=== PATIENT | male | born 1975 | race Caucasian/White ===

== ENCOUNTER 2024-07-08 13:26 | Emergency (ER) | payer BC, SELFPAY ==
--- NOTE | ~2024-07-08 | XR_ITS ---
EXAMINATION: XR chest 2V 07/08/2024 14:55 INDICATION: Cough and congestion for one week PROCEDURE: 2 view chest COMPARISON: No prior studies for comparison. FINDINGS: The lungs are clear. The cardiomediastinal silhouette is within normal limits. There are no pleural effusions. There is no pneumothorax suspected. IMPRESSION: 1: NO ACUTE CARDIOPULMONARY DISEASE. Reviewed, dictated and finalized at location A. INE OPERATOR PACKAGING
[2024-07-08 13:40] VITALS: BP 136/75; PULSE 110; RESP 20; TEMP 37.5; O2SAT 94
--- OUTSIDE RECORDS SUMMARY | 2024-07-08 14:03 | XMS_ITS | Clinical Summary ---
Author Organization [address] Address [address] [place] [address] Care Team Providers Care Television Installer Helper Name Role Phone Brittany Mccauley MD Primary Care Provider + Giovanni Hoover MD Unavailable [phone] Allergies Active Allergy Reactions Criticality Noted Date Comments Penicillins Other (See comments) Reaction: Unknown, Medications No known medications Active Problems Problem Noted Date Diagnosed Date Septic prepatellar bursitis of right knee 2021 Overview (04/11/2022): Added automatically from request for surgery [id number] Acute non-recurrent frontal sinusitis 12/11/2020 Assessment & Plan (12/11/2020 1:01 PM CDT): Antibiotic sent to pharmacy. I recommend taking Mucinex, a nasal steroid like Flonase/Nasacort/Rhinocort and using some nasal/sinus rinses such as nasal sprays or netti pot. Follow up PRN Cough 12/11/2020 Assessment & Plan (12/11/2020 1:02 PM CDT): X-ray ordered, will call with results. May treat symptoms with [id number] medications for comfort. Increase liquid intake to prevent dehydration. Monitor for resp distress or dehydration, if occurs seek care in ER. Surgical History Surgery Date Site/Laterality Comments OPEN REDUCTION INTERNAL FIXATION Right ORIF Medical History Medical History Date Comments Hx Other Medical Headache, migra ine GERD (gastroesophageal reflux disease) Family History Medical History Relation Name Comments Diabetes type II Other Diabetes me llitus type 2; Relation Name Status Comments Other Social History Tobacco Use Types Packs/Day Years Used Date Smoking Tobacco: Former Cigarettes Smokeless Tobacco: Never Tobacco Cessation:Counseling Given: Not Answered Alcohol Use Standard Drinks/Week Comments Yes 0 (1 standard drink = 0.6 oz pur e alcohol) AUDIT-C Answer Date Recorded Q1: How often do you have a drink containing alc ohol? Monthly or less 04/12/2022 Q2: How many drinks containi ng alcohol do you have on a typical day when you are drinking? 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 Gender Identity Not on file Sexual Orientation Not on file Obstetrics History Last Filed Vital Signs Vital Sign Reading Time Taken Comments Blood Pressure 120/90 08/04/2023 4:04 PM STOCKROOM SELECTOR Pulse 70 08/04/2023 4:04 PM STOCKROOM SELECTOR Temperature 36.5 ??C (97.7 ??F) 08/04/2023 4:04 PM CS T Respiratory Rate 20 08/04/2023 4:04 PM STOCKROOM SELECTOR Oxygen Saturation 98% 08/04/2023 4:04 PM STOCKROOM SELECTOR Inhaled Oxygen Concentration - - Weight 82.6 kg (182 lb) 08/04/2023 4:04 PM STOCKROOM SELECTOR Height 180.3 cm (5' 11 ) 08/04/2023 4:04 PM STOCKROOM SELECTOR Body Mass Index 25.38 08/04/2023 4:04 PM STOCKROOM SELECTOR Plan of Treatment Health Maintenance Due Date Last Done Comments Colon Cancer Screening-Colonoscopy 1977 Depression Screening 1977 Hepatitis C Screening 1977 DTaP/Tdap/Td Vaccine (1 - Tdap) 1988 Hepatitis B Screening 1995 Regular Well Visit/Exam 18-64 1995 Influenza Vaccine (#1) 2024 HPV Vaccines Aged Out No longer eligi ble based on patient's age to complete this topic Pneumococcal vaccine <65 Aged Out No longer eligible based on patient's age to complete this topic Insurance [place] [place] Care Teams Television Installer Helper Relationship Specialty Start Date End Date Brittany Mccauley MD [address] [place] [address] [address] [place] [address] PCP - General Family Medicine 12/11/20 Giovanni Hoover MD [address] [place] [address] [address] [place] [address] Surgeon Orthopedic Surgery 04/12/22
--- OUTSIDE RECORDS SUMMARY | 2024-07-08 14:03 | XMS_ITS | Referral Summary ---
Author Organization [facility] [address] [place] [address] [address] [place] [address] Care Team Providers Care Juice Mixer Name Role Phone Brittany Mccauley MD Primary Care Provider + Giovanni Hoover MD Unavailable [phone] Allergies Active Allergy Reactions Criticality Noted Date Comments Penicillins Other (See comments) Reaction: Unknown, Medications No known medications Active Problems Problem Noted Date Diagnosed Date Septic prepatellar bursitis of right knee 2021 Overview (04/11/2022): Added automatically from request for surgery [id number] Acute non-recurrent frontal sinusitis 12/11/2020 Assessment & Plan (12/11/2020 1:01 PM CDT): Antibiotic sent to pharmacy. I recommend taking Mucinex, a nasal steroid like Flonase/Nasacort/Rhinocort and using some nasal/sinus rinses such as nasal sprays or netti pot. Follow up PRN Cough 12/11/2020 Assessment & Plan (12/11/2020 1:02 PM CDT): X-ray ordered, will call with results. May treat symptoms with [id number] medications for comfort. Increase liquid intake to prevent dehydration. Monitor for resp distress or dehydration, if occurs seek care in ER. 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 SANDER Gender Identity Not on file Sexual Orientation Not on file Last Filed Vital Signs Vital Sign Reading Time Taken Comments Blood Pressure 120/90 08/04/2023 4:04 PM PNEUMATIC DRUM SANDER Pulse 70 08/04/2023 4:04 PM PNEUMATIC DRUM SANDER Temperature 36.5 ??C (97.7 ??F) 08/04/2023 4:04 PM CS T Respiratory Rate 20 08/04/2023 4:04 PM PNEUMATIC DRUM SANDER Oxygen Saturation 98% 08/04/2023 4:04 PM PNEUMATIC DRUM SANDER Inhaled Oxygen Concentration - - Weight 82.6 kg (182 lb) 08/04/2023 4:04 PM PNEUMATIC DRUM SANDER Height 180.3 cm (5' 11 ) 08/04/2023 4:04 PM PNEUMATIC DRUM SANDER Body Mass Index 25.38 08/04/2023 4:04 PM PNEUMATIC DRUM SANDER Plan of Treatment Not on file Insurance [facility] Care Teams Juice Mixer Relationship Specialty Start Date End Date Brittany Mccauley MD [address] [place] [address] PCP - General Family Medicine 12/11/20 Giovanni Hoover MD [address] [place] [address] [address] [place] [address] Surgeon Orthopedic Surgery 04/12/22
--- NOTE | 2024-07-08 14:56 | ED_ITS ---
HPI - General Adult General Chief complaint: Upper Respiratory Infection Stated complaint: Cough/Sore Throat/Chest Congestion Source: patient Mode of arrival: ambulatory Limitations: no limitations History of Present Illness HPI narrative: Patient presents for evaluation of a cough for the last 1.5 weeks. Cough is intermittently productive. He has SOB and reports discomfort with deep inspiration. He has had pneumonia in the past and this feels similar. He reports yellow nasal drainage hand a sore throat. He denies any fever, chills, nausea, vomiting, diarrhea. No recent sick contacts to his knowledge. He does vape. He is taking DayQuil and NyQuil for his symptoms. Related Data Allergies Allergy/AdvReac Type Severity Reaction Status Date / Time Penicillins Allergy Unknown Unknown Verified 07/08/24 13:56 Review of Systems Review of Systems: CONSTITUTIONAL: Denies fever, chills, or sweats. EYES: Denies visual changes, redness, or discharge. ENT: Reports sore throat. Denies rhinorrhea, congestion, or otalgia. CARDIOVASCULAR: Denies chest pain, palpitations, or edema. RESPIRATORY: Reports cough, shortness of breath, and discomfort with deep inspiration GASTROINTESTINAL: Denies abdominal pain, nausea, vomiting, or diarrhea. GENITOURINARY: Denies dysuria or hematuria. SKIN: Denies rash or itching. MUSCULOSKELETAL: Denies back pain, joint pain, or myalgia. NEUROLOGIC: Denies headache, numbness, dizziness, or weakness. PSYCHIATRIC: Denies anxiety or depression. PMFSH Past Medical History Medical History (Updated 07/08/24 @ 15:21 by ERICKA Champion, ) History of pneumonia Surgical History Surgical History No pertinent past surgical history Family History Family History Mother Family history non-contributory Social History Social History Smoking status: Current every day smoker Tobacco type: e-cigarettes/vaping Living arrangements: with family Gender identity (if verbalized by the patient): Male Spiritual care concerns: No Exam Narrative: GENERAL: Well-appearing, well-nourished, and in no acute distress. HEAD: Normocephalic, atraumatic. EYES: PERRLA and EOMI. ENT: Nares clear, no rhinorrhea or epistaxis. Mucous membranes moist. Oropharynx without tonsillar hypertrophy exudate or other lesions. Bilateral TMs pearly kimble nonbulging NECK: Supple. No adenopathy or masses. No carotid bruits or JVD CHEST: Wheezing noted in lung bases bilaterally. Cough present on exam HEART: Regular rate and rhythm. No murmur heard. Normal peripheral pulses. ABDOMEN: Soft, nontender, nondistended, normal active bowel sounds. EXTREMITIES: Normal range of motion. No edema. SKIN: Warm, dry, no rash. NEURO: No focal deficits. Alert and oriented x3. PSYCH: Normal mood and affect. Course Course Emergency Course: This is a 49 year old male who presented for evaluation of respiratory symptoms. Chest x-ray was negative. Patient does have a history of pneumonia indicated that ends in the past he has had a negative chest x-ray but ended up being diagnosed with pneumonia later. Given the fact that his current symptoms are consistent previous bouts pneumonia, I think it is reasonable to treat him for that. No will DC with Augmentin(pt confirmed he can take despite PCN), azithromycin, prednisone, Tessalon, albuterol. Increase hydration. Increase hydration. Zoyw-gmc-mpjkkmb agents for symptom management. Follow up with primary provider. Go to the ER for worsening symptoms. Patient in agreement with plan of care. Level of Care: Express Care Visit Vital Signs Vital signs: Vital Signs Temperature 37.5 C 07/08/24 13:40 Pulse Rate 110 H 07/08/24 13:40 Respiratory Rate 20 07/08/24 13:40 Blood Pressure 136/75 07/08/24 13:40 Pulse Oximetry 94 07/08/24 13:40 Oxygen Delivery Room Air 07/08/24 13:40 Temperature 37.5 C 07/08/24 13:40 Pulse Rate 110 H 07/08/24 13:40 Respiratory Rate 20 07/08/24 13:40 Blood Pressure 136/75 07/08/24 13:40 Pulse Oximetry 94 07/08/24 13:40 Oxygen Delivery Room Air 07/08/24 13:40 Medical Decision Making Vital Signs Vital Signs: Vital Signs Temperature 37.5 C 07/08/24 13:40 Pulse Rate 110 H 07/08/24 13:40 Respiratory Rate 20 07/08/24 13:40 Blood Pressure 136/75 07/08/24 13:40 Pulse Oximetry 94 07/08/24 13:40 Oxygen Delivery Room Air 07/08/24 13:40 Temperature 37.5 C 07/08/24 13:40 Pulse Rate 110 H 07/08/24 13:40 Respiratory Rate 20 07/08/24 13:40 Blood Pressure 136/75 07/08/24 13:40 Pulse Oximetry 94 07/08/24 13:40 Oxygen Delivery Room Air 07/08/24 13:40 Imaging Data Radiologist's impression: EXAMINATION: XR chest 2V 07/08/2024 14:55 INDICATION: Cough and congestion for one week PROCEDURE: 2 view chest COMPARISON: No prior studies for comparison. FINDINGS: The lungs are clear. The cardiomediastinal silhouette is within normal limits. There are no pleural effusions. There is no pneumothorax suspected. IMPRESSION: 1: NO ACUTE CARDIOPULMONARY DISEASE. Discharge Plan Discharge Clinical Impression: At high risk for pneumonia Patient Disposition: Home, Self-Care Condition: Stable Instructions: Antibiotic Form, Community Acquired Pneumonia (DC) Patient Language: Lithuanian Prescriptions: New amoxicillin-pot clavulanate 875-125 mg tablet 1 tablet PO Q12H Qty: 220 0RF azithromycin 250 mg tablet See Rx Instructions .ROUTE .COMPLEX Qty: 6 0RF Rx Instructions: For 250 mg dose pack: take 500 mg today (day 1), then 250 mg for 4 days (days 2-5) prednisone 50 mg tablet 50 mg PO DAILY Qty: 5 0RF benzonatate 200 mg capsule 200 mg PO BID PRN (Reason: cough) Qty: 30 0RF Proair Digihaler 90 mcg/actuation aero powdr breath act w/sensor 2 inh inhalation Q6H Qty: 1 0RF Follow-up/Referrals: Papito Trevino MD [Physician] - Stand Alone Forms: Work/School Release IP Time of Disposition: 15:23
== END 2024-07-08 15:27 | disposition home or self-care (01) ==
PROVIDERS: Emergency Provider Nurse Practitioner
DX: R05.9 Cough, unspecified (principal); F17.290 Nicotine dependence, other tobacco product, uncomplicated
CPT/HCPCS: 71046; 99203; G0463

== ENCOUNTER 2024-07-10 10:25 | Emergency (ER) | payer BC, SELFPAY ==
[2024-07-10] VITALS (8 sets, daily range): BP systolic 110–128; BP diastolic 66–84; PULSE 75–90; RESP 14–20; TEMP 36.8; O2SAT 93–98
--- NOTE | ~2024-07-10 | XR_ITS ---
EXAMINATION: XR chest 2V 07/10/2024 12:15 INDICATION: Shortness of breath PROCEDURE: 2 view chest COMPARISON: 07/08/2024 FINDINGS: The lungs are clear. The cardiomediastinal silhouette is within normal limits. There are no pleural effusions. There is no pneumothorax suspected. IMPRESSION: 1: NO ACUTE CARDIOPULMONARY DISEASE. Reviewed, dictated and finalized at location A. E CREW SUPERVISOR
--- NOTE | ~2024-07-10 | CT_ITS ---
EXAMINATION:CT diagnostic chest wo con DATE: 07/10/2024 13:14 INDICATION: Pneumonia. TECHNIQUE: Computed tomography (CT) of the chest was performed without intravenous contrast. Automate d exposure control and iterative reconstruction technique were employed. The dose-length product (DLP ) was 224.14 mGy-cm. COMPARISON: Chest 2 views 07/10/2024, CT abdomen and pelvis 05/15/2024 FINDINGS: There is mild emphysema. There is mild atelectasis bilaterally. There is a 3 mm nodule in l eft lower lobe, likely benign. There are tree-in-bud opacities in the lower lobes and right upper lob e. No pleural effusion. The heart size is normal. There is a trace pericardial effusion. There is mil d bilateral gynecomastia. There are 2 mm and 3 mm stones in left kidney. There is mild thoracic spond ylosis. There is mild chronic anterior wedging of T10-L1 vertebral bodies. IMPRESSION: 1. Mild tree-in-bud opacities in the lower lobes and right upper lobe, consistent with pneumonia. Reviewed, dictated and finalized at location A. NER IMPRESSION: 1. Mild tree-in-bud opacities in the lower lobes and right upper lobe, consiste nt with pneumonia.
--- NOTE | 2024-07-10 10:52 | ECG_ITS ---
Test Date: 2024-07-10 11:00:55 Measurements Intervals [place] Rate: 73 P: 60 WI: 143 QRS: 51 QRSD: 101 T: 52 QT: 387 QTc: 429 Interpretive Statements SINUS RHYTHM POSSIBLE INFERIOR MYOCARDIAL INFARCTION , OF INDETERMINATE AGE [30 ms Q WAVE IN II/aVF] No previous ECG available for comparison Electronically Signed On 07-10-2024 11:47:42 MANAGER OF PROJECT MANAGEMENT by Joey Stafford M.D.
--- NOTE | 2024-07-10 11:12 | ED_ITS ---
HPI - SOB/Dyspnea General Chief Complaint: Shortness of Breath/Dyspnea <Bria Red PA-C - Last Filed: 07/11/24 17:02> Stated Complaint: PNA on abx, needs stronger meds <Bria Red PA-C - Last Filed: 07/11/24 17:02> Time Seen by Provider: 07/10/24 11:12 <Bria Red PA-C - Last Filed: 07/11/24 17:02> Focused HPI: This is a 49 year old male that presents to the ER for cold symptoms. Ongoing over the last couple of days. He has been on a Z pack and Augmentin without relief. Worried he has pneumonia. Reports pleuritic chest pain, shortness of breath. GENERAL: Well-appearing, well-nourished, and in no acute distress. HEAD: Normocephalic, atraumatic. CHEST: No respiratory distress. Mild expiratory wheezing HEART: Regular rate and rhythm.? NEURO: ?Alert and oriented x3. Patient screened in triage and initial orders placed.? ?Additional care and disposition to be based upon?diagnostic testing and treatment. <Bria Red PA-C - Last Filed: 07/11/24 17:02> Related Data Allergies/Adverse Reactions: Allergies Allergy/AdvReac Type Severity Reaction Status Date / Time Penicillins Allergy Unknown Unknown Verified 07/10/24 10:51 <Bria Red PA-C - Last Filed: 07/11/24 17:02> Review of Systems 2 Review of Systems: All systems reviewed & are unremarkable except as noted in HPI and below <Bria Red PA-C - Last Filed: 07/11/24 17:02> PMFSH Past Medical History Medical History: Medical History (Updated 07/11/24 @ 17:02 by Bria Red PA-C) History of pneumonia <Bria Red PA-C - Last Filed: 07/11/24 17:02> Surgical History Surgical History: Surgical History No pertinent past surgical history <Bria Red PA-C - Last Filed: 07/11/24 17:02> Family History Family History: Family History Mother Family history non-contributory <Bria Red PA-C - Last Filed: 07/11/24 17:02> Social History Social History: Social History Smoking status: Current every day smoker Tobacco type: e-cigarettes/vaping Living arrangements: with family Gender identity (if verbalized by the patient): Male Spiritual care concerns: No <Bria Red PA-C - Last Filed: 07/11/24 17:02> Exam 2 Narrative: APPEARANCE: No apparent distress. Well-appearing Head: atraumatic. EYES: EOMI, NOSE: Atraumatic NECK: Trachea midline RESPIRATORY: No increased rate of breathing, mild expiratory wheezing CARDIOVASCULAR: RRR, no peripheral edema ABDOMINAL: Non-distended soft nontender MUSCULOSKELETAl: No obvious deformities NEURO: Alert. Moving 4/4 extremities SKIN:: Warm, dry. Normal color PSYCHIATRIC: Normal affect <Terrence Cody MD - Last Filed: 07/10/24 13:57> Course Vital Signs Vital signs: Vital Signs Temperature 98.3 F 07/10/24 10:45 Pulse Rate 75 07/10/24 10:45 Respiratory Rate 17 07/10/24 10:45 Blood Pressure 128/84 07/10/24 10:45 Pulse Oximetry 95 07/10/24 10:45 Oxygen Delivery Room Air 07/10/24 10:45 Temperature 98.3 F 07/10/24 10:45 Pulse Rate 90 07/10/24 14:00 Respiratory Rate 18 07/10/24 14:00 Blood Pressure 112/75 07/10/24 14:00 Pulse Oximetry 93 07/10/24 14:00 Oxygen Delivery Room Air 07/10/24 13:35 <Bria Red PA-C - Last Filed: 07/11/24 17:02> Vital Signs Temperature 98.3 F 07/10/24 10:45 Pulse Rate 75 07/10/24 10:45 Respiratory Rate 17 07/10/24 10:45 Blood Pressure 128/84 07/10/24 10:45 Pulse Oximetry 95 07/10/24 10:45 Oxygen Delivery Room Air 07/10/24 10:45 Temperature 98.3 F 07/10/24 10:45 Pulse Rate 90 07/10/24 14:00 Respiratory Rate 18 07/10/24 14:00 Blood Pressure 112/75 07/10/24 14:00 Pulse Oximetry 93 07/10/24 14:00 Oxygen Delivery Room Air 07/10/24 13:35 <Terrence Cody MD - Last Filed: 07/10/24 13:57> MDM - SOB/Dyspnea MDM Narrative Medical decision making narrative: -Course: 49-year-old male presenting 2 days after starting antibiotics for possible pneumonia. Physical exam shows normal vital signs and slight expiratory wheezing on exam. Given a breathing treatment. Chest x-ray was clear but CT showed very mild pneumonia. Patient had a complicated course of PNA several years ago has some anxiety in regards to getting worsening pneumonia. He has only been on medication for a day and half. I think he could continue the Augmentin. We will switch his azithromycin to doxy due to high resistance rates. Otherwise patient is resting comfortably in bed and is a good candidate for outpatient management. Patient be discharged with return precautions. -DDX includes but is not limited to: Pneumonia, bronchitis, viral syndrome -Co-morbidities complicating care: History pneumonia <Terrence Cody MD - Last Filed: 07/10/24 13:57> Lab Data Result diagrams: 07/10/24 11:06 07/10/24 11:06 <Bria Red PA-C - Last Filed: 07/11/24 17:02> Labs: Lab Results 07/10/24 07/10/24 Range/Units 11:06 13:01 WBC 8.8 (4.5-10.0) K/mm3 RBC 4.57 L (4.6-6.20) M/mm3 Hgb 14.2 (14.0-18.0) g/dL Hct 41.2 L (42.0-52.0) % MCV 90.2 (80-100) fl MCH 31.1 (26-34) pg MCHC 34.5 (32-36) g/dl RDW 12.6 (11.5-14.5) % Plt Count 224 (150-375) k/mm3 MPV 9.2 (7.4-10.4) fl Immature Gran % (Auto) 0.5 (0-0.5) % Neut % (Auto) 85.8 H (45.5-73.1) % Lymph % (Auto) 9.9 L (18.3-44.2) % [place] % (Auto) 3.5 (2.6-8.5) % Eos % (Auto) 0.2 (0-4.4) % Baso % (Auto) 0.1 L (0.2-1.2) % Lymph # (Auto) 0.87 L (0.9-3.2) K/mm3 [place] # (Auto) 0.3 (0.1-0.6) K/mm3 Eos # (Auto) 0.0 (0-0.3) K/mm3 Baso # (Auto) 0.0 (0.0-0.1) K/mm3 Abs Immat Gran (auto) 0.04 H (0.00-0.031) K/mm3 Absolute Neuts (auto) 7.6 H (1.3-6.7) K/mm3 Absolute Nucleated RBC 0.000 (0.0-0.012) K/mm3 Nucleated RBC % 0.0 (0.0-0.2) % Sodium 142 (137-145) mmol/L Potassium 3.7 (3.4-5.0) mmol/L Chloride 104 (98-107) mmol/L Carbon Dioxide 28 (22-30) mmol/L Anion Gap 10 (4-12) mmol/L BUN 14 (9-20) mg/dL Creatinine 0.60 L (0.7-1.3) mg/dL Estim Creat Clear Calc 138 ml/min Estimated GFR > 60 (59 - ) Glucose 117 H (65-110) mg/dL Calcium 8.9 (8.4-10.2) mg/dL Total Bilirubin 0.4 (0.2-1.3) mg/dL AST 27 (17-59) U/L ALT 20 (6-50) U/L Alkaline Phosphatase 69 (38-126) U/L Troponin I < 0.012 (0.000-0.034) ng/mL Total Protein 7.0 (6.3-8.2) g/dL Albumin 3.9 (3.5-5.1) g/dL Influenza A (RT-PCR) Negative (Negative) Influenza B (RT-PCR) Negative (Negative) RSV (RT-PCR) Negative (Negative) SARS-CoV-2 RNA (RT-PCR) Negative (Negative) <Bria Red PA-C - Last Filed: 07/11/24 17:02> Lab Results 07/10/24 07/10/24 Range/Units 11:06 13:01 WBC 8.8 (4.5-10.0) K/mm3 RBC 4.57 L (4.6-6.20) M/mm3 Hgb 14.2 (14.0-18.0) g/dL Hct 41.2 L (42.0-52.0) % MCV 90.2 (80-100) fl MCH 31.1 (26-34) pg MCHC 34.5 (32-36) g/dl RDW 12.6 (11.5-14.5) % Plt Count 224 (150-375) k/mm3 MPV 9.2 (7.4-10.4) fl Immature Gran % (Auto) 0.5 (0-0.5) % Neut % (Auto) 85.8 H (45.5-73.1) % Lymph % (Auto) 9.9 L (18.3-44.2) % [place] % (Auto) 3.5 (2.6-8.5) % Eos % (Auto) 0.2 (0-4.4) % Baso % (Auto) 0.1 L (0.2-1.2) % Lymph # (Auto) 0.87 L (0.9-3.2) K/mm3 [place] # (Auto) 0.3 (0.1-0.6) K/mm3 Eos # (Auto) 0.0 (0-0.3) K/mm3 Baso # (Auto) 0.0 (0.0-0.1) K/mm3 Abs Immat Gran (auto) 0.04 H (0.00-0.031) K/mm3 Absolute Neuts (auto) 7.6 H (1.3-6.7) K/mm3 Absolute Nucleated RBC 0.000 (0.0-0.012) K/mm3 Nucleated RBC % 0.0 (0.0-0.2) % Sodium 142 (137-145) mmol/L Potassium 3.7 (3.4-5.0) mmol/L Chloride 104 (98-107) mmol/L Carbon Dioxide 28 (22-30) mmol/L Anion Gap 10 (4-12) mmol/L BUN 14 (9-20) mg/dL Creatinine 0.60 L (0.7-1.3) mg/dL Estim Creat Clear Calc 138 ml/min Estimated GFR > 60 (59 - ) Glucose 117 H (65-110) mg/dL Calcium 8.9 (8.4-10.2) mg/dL Total Bilirubin 0.4 (0.2-1.3) mg/dL AST 27 (17-59) U/L ALT 20 (6-50) U/L Alkaline Phosphatase 69 (38-126) U/L Troponin I < 0.012 (0.000-0.034) ng/mL Total Protein 7.0 (6.3-8.2) g/dL Albumin 3.9 (3.5-5.1) g/dL Influenza A (RT-PCR) Negative (Negative) Influenza B (RT-PCR) Negative (Negative) RSV (RT-PCR) Negative (Negative) SARS-CoV-2 RNA (RT-PCR) Negative (Negative) <Terrence Cody MD - Last Filed: 07/10/24 13:57> Imaging Data Radiologist's impression: ITS Impressions Chest X-Ray 07/10/24 12:20 IMPRESSION: 1: NO ACUTE CARDIOPULMONARY DISEASE. Chest CT 07/10/24 13:26 IMPRESSION: 1. Mild tree-in-bud opacities in the lower lobes and right upper lobe, consistent with pneumonia. <Bria Red PA-C - Last Filed: 07/11/24 17:02> Critical Care Time Critical Care Time Critical Care Time: No <Bria Red PA-C - Last Filed: 07/11/24 17:02> Discharge Plan Discharge Clinical Impression: Pneumonia Qualifiers: Pneumonia type: due to unspecified organism Laterality: bilateral Lung location: lower lobe of lung Qualified Code(s): J18.9 - Pneumonia, unspecified organism <Bria Red PA-C - Last Filed: 07/11/24 17:02> Patient Disposition: Home, Self-Care <Bria Red PA-C - Last Filed: 07/11/24 17:02> Condition: Stable <Bria Red PA-C - Last Filed: 07/11/24 17:02> Instructions: Antibiotic Form, Bacterial Pneumonia (DC) <Bria Red PA-C - Last Filed: 07/11/24 17:02> Additional Instructions: You were seen in the ED for pneumonia. Please continue taking the Augmentin as instructed. Please add doxycycline 100 mg b.i.d. x7 days. Please follow-up with your primary care physician in 48 hours. If you feel your condition is getting worse please return ED for re-evaluation. <Bria Red PA-C - Last Filed: 07/11/24 17:02> Patient Language: Hungarian <Bria Red PA-C - Last Filed: 07/11/24 17:02> Prescriptions: New doxycycline hyclate 100 mg capsule 100 mg PO DAILY Qty: 14 0RF No Action amoxicillin-pot clavulanate 875-125 mg tablet 1 tablet PO Q12H Qty: 220 0RF azithromycin 250 mg tablet See Rx Instructions .ROUTE .COMPLEX Qty: 6 0RF Rx Instructions: For 250 mg dose pack: take 500 mg today (day 1), then 250 mg for 4 days (days 2-5) prednisone 50 mg tablet 50 mg PO DAILY Qty: 5 0RF benzonatate 200 mg capsule 200 mg PO BID PRN (Reason: cough) Qty: 30 0RF Proair Digihaler 90 mcg/actuation aero powdr breath act w/sensor 2 inh inhalation Q6H Qty: 1 0RF <Bria Red PA-C - Last Filed: 07/11/24 17:02> Follow-up/Referrals: UNKNOWN,DOCTOR [Primary Care Provider] - <Bria Red PA-C - Last Filed: 07/11/24 17:02>
[2024-07-10 11:13] LABS: Basophils Percent Auto 0.1 % (0.2-1.2); Eosinophils Percent Auto 0.2 % (0-4.4); Hematocrit 41.2 % (42.0-52.0); Hemoglobin 14.2 g/dL (14.0-18.0); Immature Granulocyte Absolute 0.04 K/mm3 (0.00-0.031); Immature Granulocyte Percent A 0.5 % (0-0.5); Lymphocytes Absolute Auto 0.87 K/mm3 (0.9-3.2); Lymphocytes Percent Auto 9.9 % (18.3-44.2); Mean Corpuscular HGB Conc 34.5 g/dl (32-36); Mean Corpuscular Hemoglobin 31.1 pg (26-34); Mean Corpuscular Volume 90.2 fl (80-100); Mean Platelet Volume 9.2 fl (7.4-10.4); Monocytes Absolute Auto 0.3 K/mm3 (0.1-0.6); Monocytes Percent Auto 3.5 % (2.6-8.5); Neutrophils Absolute Auto 7.6 K/mm3 (1.3-6.7); Neutrophils Percent Auto 85.8 % (45.5-73.1); Platelet Count Result 224 k/mm3 (150-375); Red Blood Count 4.57 M/mm3 (4.6-6.20); Red Cell Distribution Width 12.6 % (11.5-14.5); White Blood Count 8.8 K/mm3 (4.5-10.0)
--- OUTSIDE RECORDS SUMMARY | 2024-07-10 11:18 | XMS_ITS | Clinical Summary ---
Author Organization [address] Address [address] [place] [address] Care Team Providers Care Production Engine Repairer Name Role Phone Brittany Mccauley MD Primary Care Provider + Giovanni Hoover MD Unavailable [phone] Allergies Active Allergy Reactions Criticality Noted Date Comments Penicillins Other (See comments) Reaction: Unknown, Medications No known medications Active Problems Problem Noted Date Diagnosed Date Septic prepatellar bursitis of right knee 2021 Overview (04/11/2022): Added automatically from request for surgery [id number] Acute non-recurrent frontal sinusitis 12/11/2020 Assessment & Plan (12/11/2020 1:01 PM CDT): Antibiotic sent to pharmacy. I recommend taking Mucinex, a nasal steroid like Flonase/Nasacort/Rhinocort and using some nasal/sinus rinses such as nasal sprays or netti pot. Follow up PRN Cough 12/11/2020 Assessment & Plan (12/11/2020 1:02 PM CDT): X-ray ordered, will call with results. May treat symptoms with [id number] medications for comfort. 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 Gender Identity Not on file Sexual Orientation Not on file Obstetrics History Last Filed Vital Signs Vital Sign Reading Time Taken Comments Blood Pressure 120/90 08/04/2023 4:04 PM SUPERVISOR GROUNDS Pulse 70 08/04/2023 4:04 PM SUPERVISOR GROUNDS Temperature 36.5 ??C (97.7 ??F) 08/04/2023 4:04 PM CS T Respiratory Rate 20 08/04/2023 4:04 PM SUPERVISOR GROUNDS Oxygen Saturation 98% 08/04/2023 4:04 PM SUPERVISOR GROUNDS Inhaled Oxygen Concentration - - Weight 82.6 kg (182 lb) 08/04/2023 4:04 PM SUPERVISOR GROUNDS Height 180.3 cm (5' 11 ) 08/04/2023 4:04 PM SUPERVISOR GROUNDS Body Mass Index 25.38 08/04/2023 4:04 PM SUPERVISOR GROUNDS Plan of Treatment Health Maintenance Due Date [...] patient's age to complete this topic Insurance [employer] Care Teams Production Engine Repairer Relationship Specialty Start Date End Date Brittany Mccauley MD [address] [place] [address] [address] [place] [address] PCP - General Family Medicine 12/11/20 Giovanni Hoover MD [address] [place] [address] [address] [place] [address] Surgeon Orthopedic Surgery 04/12/22
--- OUTSIDE RECORDS SUMMARY | 2024-07-10 11:18 | XMS_ITS | Referral Summary ---
Author Organization [facility] [place] [address] [place] [address] Address [address] [place] [address] Care Team Providers Care Cafe Assistant Name Role Phone Brittany Mccauley MD Primary Care Provider + Giovanni Hoover MD Unavailable Allergies Active Allergy Reactions Criticality Noted Date Comments Penicillins Other (See comments) Reaction: Unknown, Medications No known medications Active Problems Problem Noted Date Diagnosed Date Septic prepatellar bursitis of right knee 2021 Overview (04/11/2022): Added automatically from request for surgery [id number] Acute non-recurrent frontal sinusitis 12/11/2020 Assessment & Plan (12/11/2020 1:01 PM CDT): Antibiotic sent to pharmacy. I recommend taking Mucinex, a nasal steroid like Flonase/Nasacort/Rhinocort and using some nasal/sinus rinses such as nasal sprays or netti pot. Follow up PRN Cough 12/11/2020 Assessment & Plan (12/11/2020 1:02 PM CDT): X-ray ordered, will call with results. May treat symptoms with [id number]-[id number] medications for comfort. 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 Gender Identity Not on file Sexual Orientation Not on file Last Filed Vital Signs Vital Sign Reading Time Taken Comments Blood Pressure 120/90 08/04/2023 4:04 PM OPTICS TECHNICAL OFFICER Pulse 70 08/04/2023 4:04 PM OPTICS TECHNICAL OFFICER Temperature 36.5 ??C (97.7 ??F) 08/04/2023 4:04 PM CS T Respiratory Rate 20 08/04/2023 4:04 PM OPTICS TECHNICAL OFFICER Oxygen Saturation 98% 08/04/2023 4:04 PM OPTICS TECHNICAL OFFICER Inhaled Oxygen Concentration - - Weight 82.6 kg (182 lb) 08/04/2023 4:04 PM OPTICS TECHNICAL OFFICER Height 180.3 cm (5' 11 ) 08/04/2023 4:04 PM OPTICS TECHNICAL OFFICER Body Mass Index 25.38 08/04/2023 4:04 PM OPTICS TECHNICAL OFFICER Plan of Treatment Not on file Insurance [facility] Care Teams Cafe Assistant Relationship Specialty Start Date End Date Brittany Mccauley MD [address] [place] [address] PCP - General Family Medicine 12/11/20 Giovanni Hoover MD [address] [place] [address] [address] [place] [address] Surgeon Orthopedic Surgery 04/12/22
[2024-07-10 11:26] LABS: Alanine Aminotransferase 20 U/L (6-50); Albumin Level 3.9 g/dL (3.5-5.1); Alkaline Phosphatase 69 U/L (38-126); Anion Gap 10 mmol/L (4-12); Aspartate Amino Transferase 27 U/L (17-59); Bilirubin,Total 0.4 mg/dL (0.2-1.3); Blood Urea Nitrogen 14 mg/dL (9-20); Calcium 8.9 mg/dL (8.4-10.2); Carbon Dioxide 28 mmol/L (22-30); Chloride 104 mmol/L (98-107); Estimated CRCL calculation 138 ml/min; Estimated Glomerular Filt Rate > 60; Glucose 117 mg/dL (65-110); Potassium 3.7 mmol/L (3.4-5.0); Sodium 142 mmol/L (137-145)
[2024-07-10] MEDS: IPRATROPIUM 0.5 MG/ALBUTEROL SULFATE 2.5 MG AMPUL.NEB 3 ML INHALATION (11:34)
[2024-07-10 11:38] LABS: Troponin I < 0.012 ng/mL (0.000-0.034)
--- NOTE | 2024-07-10 11:51 | PC.NURSE ---
Patient not in room at this time
[2024-07-10] MEDS: predniSONE 20 MG TABLET 40 MG PO (12:21)
--- OUTSIDE RECORDS SUMMARY | 2024-07-10 13:09 | XMS_ITS | Referral Summary ---
Author Organization [facility] [place] [address] [place] [address] [address] [place] [address] Care Team Providers Care Hydrometer Finisher Name Role Phone Brittany Mccauley MD Primary Care Provider + Giovanni Hoover MD Unavailable [phone] Allergies Active Allergy Reactions Criticality Noted Date Comments Penicillins Other (See comments) Reaction: Unknown, Medications No known medications Active Problems Problem Noted Date Diagnosed Date Septic prepatellar bursitis of right knee 2021 Overview (04/11/2022): Added automatically from request for surgery [id number] Acute non-recurrent frontal sinusitis 12/11/2020 Assessment & Plan (12/11/2020 1:01 PM CDT): Antibiotic sent to pharmacy. I recommend taking Mucinex, a nasal steroid like Flonase/Nasacort/Rhinocort and using some nasal/sinus rinses such as nasal sprays or netti pot. Follow up PRN Cough 12/11/2020 Assessment & Plan (12/11/2020 1:02 PM CDT): X-ray ordered, will call with results. May treat symptoms with [id number]-[id number] medications for comfort. 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 Gender Identity Not on file Sexual Orientation Not on file Last Filed Vital Signs Vital Sign Reading Time Taken Comments Blood Pressure 120/90 08/04/2023 4:04 PM DIRECTOR OF ENGINEERING Pulse 70 08/04/2023 4:04 PM DIRECTOR OF ENGINEERING Temperature 36.5 ??C (97.7 ??F) 08/04/2023 4:04 PM CS T Respiratory Rate 20 08/04/2023 4:04 PM DIRECTOR OF ENGINEERING Oxygen Saturation 98% 08/04/2023 4:04 PM DIRECTOR OF ENGINEERING Inhaled Oxygen Concentration - - Weight 82.6 kg (182 lb) 08/04/2023 4:04 PM DIRECTOR OF ENGINEERING Height 180.3 cm (5' 11 ) 08/04/2023 4:04 PM DIRECTOR OF ENGINEERING Body Mass Index 25.38 08/04/2023 4:04 PM DIRECTOR OF ENGINEERING Plan of Treatment Not on file Insurance [facility] Care Teams Hydrometer Finisher Relationship Specialty Start Date End Date Brittany Mccauley MD [address] [place] [address] PCP - General Family Medicine 12/11/20 Giovanni Hoover MD [address] [place] [address] [address] [place] [address] Surgeon Orthopedic Surgery 04/12/22
--- OUTSIDE RECORDS SUMMARY | 2024-07-10 13:09 | XMS_ITS | Clinical Summary ---
Author Organization [address] Address [address] [place] [address] Care Team Providers Care Box Puller Name Role Phone Brittany Mccauley MD Primary Care Provider + Giovanni Hoover MD Unavailable [phone] Allergies Active Allergy Reactions Criticality Noted Date Comments Penicillins Other (See comments) Reaction: Unknown, Medications No known medications Active Problems Problem Noted Date Diagnosed Date Septic prepatellar bursitis of right knee 2021 Overview (04/11/2022): Added automatically from request for surgery [id number] Acute non-recurrent frontal sinusitis 12/11/2020 Assessment & Plan (12/11/2020 1:01 PM CDT): Antibiotic sent to pharmacy. I recommend taking Mucinex, a nasal steroid like Flonase/Nasacort/Rhinocort and using some nasal/sinus rinses such as nasal sprays or netti pot. Follow up PRN Cough 12/11/2020 Assessment & Plan (12/11/2020 1:02 PM CDT): X-ray ordered, will call with results. May treat symptoms with [id number]-yyt-[id number] medications for comfort. 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 Gender Identity Not on file Sexual Orientation Not on file Obstetrics History Last Filed Vital Signs Vital Sign Reading Time Taken Comments Blood Pressure 120/90 08/04/2023 4:04 PM NEUROLOGICAL SURGERY TEACHER Pulse 70 08/04/2023 4:04 PM NEUROLOGICAL SURGERY TEACHER Temperature 36.5 ??C (97.7 ??F) 08/04/2023 4:04 PM CS T Respiratory Rate 20 08/04/2023 4:04 PM NEUROLOGICAL SURGERY TEACHER Oxygen Saturation 98% 08/04/2023 4:04 PM NEUROLOGICAL SURGERY TEACHER Inhaled Oxygen Concentration - - Weight 82.6 kg (182 lb) 08/04/2023 4:04 PM NEUROLOGICAL SURGERY TEACHER Height 180.3 cm (5' 11 ) 08/04/2023 4:04 PM NEUROLOGICAL SURGERY TEACHER Body Mass Index 25.38 08/04/2023 4:04 PM NEUROLOGICAL SURGERY TEACHER Plan of Treatment Health Maintenance Due Date Last Done Comments Colon Cancer Screening-Colonoscopy 1977 Depression Screening 1977 Hepatitis C Screening 1977 DTaP/Tdap/Td Vaccine (1 - Tdap) 1988 Hepatitis B Screening 1995 Regular Well Visit/Exam 18-64 1995 Influenza Vaccine (#1) 2024 Pneumococcal vaccine <65 Aged Out No longer eligible based on patient's age to complete this topic Insurance [facility] [employer] [place] Care Teams Box Puller Relationship Specialty Start Date End Date Brittany Mccauley MD [address] [place] [address] [address] [place] [address] PCP - General Family Medicine 12/11/20 Giovanni Hoover MD [address] [place] [address] [address] [place] [address] Surgeon Orthopedic Surgery 04/12/22
[2024-07-10 13:51] LABS: Influenza A QL RT-PCR Negative (Negative); Influenza B QL RT-PCR Negative (Negative); RSV RNA, RT-PCR Negative (Negative); SARS-CoV-2 RNA PCR Negative (Negative)
== END 2024-07-10 14:15 | disposition home or self-care (01) ==
PROVIDERS: Emergency Medicine; Emergency Provider Emergency Medicine
DX: J18.9 Pneumonia, unspecified organism (principal); Z20.822 Contact with and (suspected) exposure to COVID-19; F17.290 Nicotine dependence, other tobacco product, uncomplicated
CPT/HCPCS: 36415; 71046; 71250; 80053; 84484; 85025; 87637; 93005; 94640; 99284; J7512